=== PATIENT | female | born 1955 | race Caucasian/White ===

== ENCOUNTER → 2018-03-22 | Outpatient (CLI) | payer BC, OTHER ==
[~2018-03-22] MED LIST: ALLEGRA180 MG PO; CELEBREX PO; IBUPROFEN 600600 M1 PO; LOSARTAN-HCTZ1 EACH PO; NASONEX17 GM NS; NORCO 5-325 TA1 EACH PO; SYNTHROID25 MCG PO
== END ==
LOC: BC 03-20 14:24 → NUC 03:16 → BC 03:16
DX: Z12.31 Encounter for screening mammogram for malignant neoplasm of breast (principal); M81.0 Age-related osteoporosis without current pathological fracture